=== PATIENT | male | born 1965 | race Hispanic/Latino ===

== ENCOUNTER 2024-01-27 01:14 | Inpatient (IN) | payer OTHER, SELFPAY ==
[2024-01-26 20:51] VITALS: BP 158/105
[2024-01-26 21:09] LABS: % Basophils 0.3 % (0-2); % Eosinophils 0.9 % (0-6); % Immature Granulocytes 0.4 % (0-0.5); % Lymphocytes 18.7 % (20.5-51.1); % Monocytes 4.8 % (1.7-9.3); % Neutrophils 74.9 % (42.2-75.2); Absolute Eosinophils 0.1 10^3/uL (0-0.7); Absolute Lymphocytes 1.5 10^3/uL (1.2-3.4); Absolute Monocytes 0.4 10^3/uL (0.1-0.6); Absolute Neutrophils 5.8 10^3/uL (1.4-6.5); Hematocrit 46.9 % (39.0-52.0); Mean Corp Hgb Conc. 34.1 g/dL (33.0-37.0); Mean Corpuscular Volume 87.8 fL (80.0-94.0); Mean Platelet Volume 12.6 fL (7.4-10.4); Nucleated Red Blood Cells % 0 % (-); Platelet Count 177 10^3/uL (130-400); Red Blood Cell Count 5.34 10^6/uL (4.70-6.10); Red Cell Dist. Width 13.2 % (11.5-14.5); White Blood Cell Count 7.8 10^3/uL (4.8-10.8)
[2024-01-26 21:37] LABS: ALT (SGPT) 36 U/L (0-50); AST (SGOT) 30 U/L (17-59); Albumin 4.1 g/dl (3.5-5.0); Alkaline Phosphatase 180 U/L (38-126); Blood Urea Nitrogen 18 mg/dl (9-20); Calcium 9.4 mg/dl (8.4-10.2); Carbon Dioxide 21 mmol/L (22-30); Chloride 103 mmol/L (98-107); Glucose 517 mg/dl (70-99); Potassium 4.9 mmol/L (3.5-5.1); Sodium 134 mmol/L (135-145); Total Bilirubin 1.4 mg/dl (0.2-1.3); Total Protein 7.1 g/dl (6.3-8.2); eGFR > 60.00
[2024-01-26 22:55] VITALS: BMI 32.4
[2024-01-26 22:58] VITALS: BP 152/98
[2024-01-26] MEDS: NSS 1000 IV ×2 (23:02→23:45)
--- NOTE | 2024-01-26 23:27 | ED.GENMED ---
History of Present Illness
General
Chief Complaint: Blood Sugar Problem
Source: patient
Exam Limitations: none
Time Seen by Provider: 01/26/24 22:56
Nursing documentation reviewed up to this point in time: agreed with
Travel History
Have you had any contact with someone who has COVID-19?: No
Do you have any symptoms of coronavirus? Fever > 100 degrees, chills, cough, shortness of breath, sore throat, loss of taste or smell, muscle aches, or headache?: No
History of Present Illness
History of Present Illness:
58 y/o M dutch speaking male
here with 20 pound weight loss in a few weeks, polydipsia, polyuria,
and then vomit x 1 yesterday
dry mouth and tongue feeling with cracked skin in mouth and lips
pt does not have a doctor, he has a clinic he has been to near his house but no family doctor
had previous surgery of his hip for arthrits and his A1C was 6.1 at the time
he has never been told he was diabetic
he does drink beers daily, usually around 1-4 beers
he previuosly was heavy drinker and was told he had cirrhosis
Past History
Past History
ED Past Medical History: Other (Cirrhosis alcoholic)
ED Past Surgical History: Orthopedic (Left total hip replacement)
Social History
Tobacco: Non-smoker
Alcohol: Daily (Former alcoholic)
Drug: None
Personal:
Living: with family
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
Review of Systems
Review of Systems
Allergies reviewed?: Yes
All Other Systems: Not applicable
Phy Exam
Physical Exam
Physical Exam:
GENERAL: Alert , in no apparent distress
EYE: pupils equal and reactive
NECK: Supple
ENT: very dry mouth, plaques in his roof of mouth and tongue; c/w thrush
CARDIAC: Regular rate and rhythm .
LUNGS: Clear breath sounds bilaterally, no acute respiratory distress, no wheezes/rales/rhonchi
ABDOMEN: Soft, without focal tenderness, no r/g, no cvat, normal bowel sounds
NEUROLOGICAL: Alert and oriented, no focal neuro deficits
SKIN: Warm and dry, skin intact.
MUSCULOSKELETAL: No edema, well perfused. neg keila's sign
PSYCH: Normal and appropriate interaction.
Course
Orders/Labs/Results
Orders:
Orders
01/26/24 20:59
Complete Blood Count/With Diff Urgent
Comprehensive Metabolic Panel Urgent
01/26/24 22:20
IV Insert/Care/Rem.- Treatment PRN
01/26/24 23:00
0.9% Sodium Chloride 1000 ml [Nss] 1,000 ml IV BOLUS
01/26/24 23:05
B-Hydroxybutyrate Urgent
Basic Metabolic Panel Q2H
Glycohemoglobin (HgbA1c) Urgent
01/26/24 23:18
0.9% Sodium Chloride 1000 ml [Nss] 1,000 ml IV BOLUS
01/26/24 23:44
Urinalysis Urgent
Date Specimen was Collected: 01/26/24
Time Specimen was Collected: 23:44
01/27/24 00:34
Basic Metabolic Panel Q2H
GGTP Routine
Comment: ADDED
01/27/24 00:35
Fluconazole [Diflucan] 150 mg PO NOW STA
01/27/24 00:59
Admit/Transfer Patient As Directed
Co-Sign Provider:
Level of Care: Inpatient admission
Assign to:: ICU
Physician / Group: heshamy
Diagnosis: New onset of DM presents as hyperglycemic crisis ( DKA vs HHC)
Reason for Hospitalization: New onset of DM presents as hyperglycemic crisis ( DKA vs HHC)
Expected length of stay greater than two midnights?: Yes
ELOS- Estimated Length of Stay in days: 3
I certify the patient meets the requirements for IP care: Yes
01/27/24 01:00
Code Status As Directed
Resuscitation Status: Full Code
Reg Insulin 100 Units/100 ml [Novolin R Insulin Infusion] 100 units in 100 ml IV ONCE
01/27/24 02:24
0.9% Sodium Chloride 1000 ml [Nss] 1,000 ml IV 160 mls/hr
Reg Insulin 100 Units/100 ml [Novolin R Insulin Infusion] 100 units in 100 ml IV PER PROTOCOL
Initial dose in units/hr, then titrate:: 6
01/27/24 02:24
Diabetes Education Consult Routine
Reason for Consult: Insulin Instruction
Monitor Instruction
Newly Diagnosed?: Yes
Diabetes Management by Nurse Practitioner Routine
Consulting Provider: Daya Palafox
Was provider already notified?: No
Reason for Consult: Insulin Management
Activity As Directed
Activity Level: With Assistance
Intake/ Output As Directed
Frequency: Per unit guidelines
Notify MD As Directed
Notify physician if: Nurse to contact provider when glucose reaches 250 to obtain orders for D5 0.45 NaCl
Pneumatic Compression Sleeves As Directed
Type: Knee high
Vital Signs As Directed
Frequency: Per unit guidelines
Weight As Directed
Frequency: Daily
DX Deep Vein Thrombosis Video Routine
01/27/24 03:46
Basic Metabolic Panel IN AM
Complete Blood Count/No Diff IN AM
Prothrombin Time IN AM
01/27/24 Breakfast
2000 calorie (17 carb) Diabetic
At Your Request: Limited Participation
Does patient need a safe tray?: No
Comment: dutch speaking
Abnormal Lab Results
01/26/24 01/26/24 01/26/24
20:59 23:05 23:44
MPV 12.6 H fL
(7.4-10.4)
Lymphocytes % 18.7 L %
(20.5-51.1)
Sodium 134 L mmol/L
(135-145)
Chloride
Carbon Dioxide 21 L mmol/L
(22-30)
Glucose 517 H* mg/dl 480 H* mg/dl
(70-99) (70-99)
Total Bilirubin 1.4 H mg/dl
(0.2-1.3)
Alkaline Phosphatase 180 H U/L
(38-126)
Urine Ketones 3+ A
(Negative)
Urine Glucose 3+ A
(Negative)
B-Hydroxybutyrate 4.17 H mmol/L
(0.02-0.27)
01/27/24
00:34
MPV
Lymphocytes %
Sodium
Chloride 108 H mmol/L
(98-107)
Carbon Dioxide 21 L mmol/L
(22-30)
Glucose 346 H mg/dl
(70-99)
Total Bilirubin
Alkaline Phosphatase
Urine Ketones
Urine Glucose
B-Hydroxybutyrate
01/26/24 20:59
01/27/24 00:34
Vital Signs
Initial and Last Documented VS:
Initial Vital Signs
Temp Pulse Resp BP Pulse Ox
98.3 F 88 18 158/105 94
01/26/24 20:51 01/26/24 20:51 01/26/24 20:51 01/26/24 20:51 01/26/24 20:51
Last Documented Vital Signs
Temp Pulse Resp BP Pulse Ox
98.8 F 61 20 159/91 97
01/27/24 02:26 01/27/24 03:45 01/27/24 03:45 01/27/24 03:09 01/27/24 03:49
MDM/Problems Addressed
Differential Diagnosis Includes:
DKA, HHNK, hyperglycemia
MDM/Problems Addressed:
58 y/o M with no reported history of Dm
here with feew weeks of weight loss, fatigue, thirst, polyuria
vomited x 1 ysterdsay
and now with mouth sores and dryness
bg 500
dry mouth with some plaques on roof of mouth and tongue
hr normal
abdomen benign
Ua 3+ ketones
bhb 4.17
ag 10
WILL START INSULIN DRIPP
*Critical Care Note
Total Time (30-74mins, 75-104mins- exclusive of procedures): Not Applicable
ED Attending Note
-
Portions of this chart may have been created with voice recognition software.� Occasional wrong word or��sound alike� substitutions may have occurred due to the inherent limitations of voice recognition software.
Discharge Plan
Departure
Patient Disposition: Admit
Date of Disposition: 01/27/24
Time of Disposition: 00:33
Presentation/result/management discussed w/ accepting MD/DO: Hospitalist
Patient with high blood pressure during this ER visit?: Yes
Condition: Fair
Covid-19: Not Applicable
Discharge Problem:
Acute hyperglycemia
Interventions
Interventions:
*Risk Screen - Suicide Last Done: 01/26/24 20:51
*General Assessment Last Done: 01/26/24 20:51
*Neglect/Abuse Screening Last Done: 01/26/24 20:51
ED- Fall Risk Assessment Last Done: 01/26/24 23:00
*ED COVID-19 Vaccine History Last Done: 01/26/24 22:56
*Nursing Disposition Last Done: 01/27/24 01:59
ED- Neurological Assessment Last Done: 01/26/24 23:27
Discharge Date and Time
Discharge Date/Time: 01/27/24 02:06
[2024-01-26 23:44] LABS: Blood Urea Nitrogen 18 mg/dl (9-20); Calcium 9.6 mg/dl (8.4-10.2); Carbon Dioxide 23 mmol/L (22-30); Chloride 103 mmol/L (98-107); Estimated Creatinine Clearance 103 ml/min; Glucose 480 mg/dl (70-99); Potassium 5.1 mmol/L (3.5-5.1); Sodium 136 mmol/L (135-145); eGFR > 60.00
[2024-01-26 23:48] LABS: B-Hydroxybutyrate 4.17 mmol/L (0.02-0.27)
[2024-01-27] VITALS (15 sets, daily range): BP systolic 130–168; BP diastolic 66–101; BMI 32.7
[2024-01-27 00:03] LABS: Urine Albumin Negative (Neg - Trace); Urine Bilirubin Negative (Negative); Urine Character Clear (Clear); Urine Color Yellow; Urine Glucose 3+ (Negative); Urine Ketone 3+ (Negative); Urine Leukocyte Negative (Negative); Urine Nitrite Negative (Negative); Urine Occult Blood Negative (Negative); Urine Specific Gravity 1.015 (<1.030); Urine Urobilinogen Negative (Neg - 1+)
--- NOTE | 2024-01-27 00:52 | HPS.HSE ---
Addendum entered and electronically signed by Nicolas Olsen MD 01/27/24 19:02:
A1C 14.4
Original Note:
Family Physician
-
Family Physician: NOT KNOW UNKNOWN - PT DOES
Chief Complaint
-
thirsty , dry mouth, wt loss
History of Present Illness
58 Romanian speaker M, No PCP, not on ant meds HX ETOH cirrhosis, no prior established HX DM
HX from with limited Monegasque reports 3-4 days ago he complnts of blurry vision, spontaneously resloved.
He denied polyuria but reports thirsty
Reports sore throat and sore mouth noted oral thrush on exam.
Admitted drinking 1- 3 beer per day for last 1 week.
No prior HX DM
Medical History
Past Medical History
Past Medical History: Reports Other (Cirrhosis alcoholic)
Past Surgical History: Reports None
Social History
Tobacco: Non-smoker
Alcohol: Other (Start drinking 1 -3 beer a day for 1 week )
Living: With Family
Family History
Family History: Not pertinent
Allergies / Home Medications
Allergies reflects when Allergies were last updated in [facility].
Home Medications with original date entered in [facility]
Allergy/Medication List:
Allergies
Allergy/AdvReac Type Severity Reaction Status Date / Time
No Known Allergies Allergy Verified 11/02/22 00:42
Home Medications
No Meds [No Current Medications] 01/26/24
If medication reconciliation has not been performed, why?: Medication List N/A
Review of Systems
-
Constitutional: Reports Weight Loss (20 lbs )
EENT: Reports No Symptoms
Respiratory: Reports No Symptoms
Cardiac: Reports No Symptoms
Abdomen/GI: Reports No Symptoms
: Reports No Symptoms
Musculoskeletal: Reports No Symptoms
Skin: Reports No Symptoms
Neurological: Reports No Symptoms
Endocrine: Reports Polyuria and Polydipsia
Hematologic/Lymphatic: Reports No Symptoms
Psych: Reports No Symptoms
Physical Exam
Vital Signs
Vital Signs
Temp Pulse Resp BP Pulse Ox
98.4 F 66 12 152/98 97
01/26/24 22:58 01/26/24 23:48 01/26/24 23:48 01/26/24 22:58 01/26/24 23:48
Physical Exam
General: Well Developed, Well Nourished, No Apparent Distress and Obese (class I)
HEENT: NormoCephalic and Other (oral candidiasis ); No Moist mucous membranes
Respiratory: Clear; No Wheezes
Cardiac: S1/S2 and Regular Rhythm
GI: Soft
Genito-urinary: Deferred by me
Musculoskeletal: No Edema
Skin: Dry
Neuro: Awake and Alert
Psych: Calm
Laboratory Results
-
01/26/24 20:59
Laboratory Results
Total Bilirubin 1.4 mg/dl (0.2-1.3) H 01/26/24 20:59
AST 30 U/L (17-59) 01/26/24 20:59
ALT 36 U/L (0-50) 01/26/24 20:59
Alkaline Phosphatase 180 U/L (38-126) H 01/26/24 20:59
Data Reviewed
-
Lab Data: Labs Reviewed by me
Impression/Plan
-
Reviewed VS:
Vital Signs
Temp Pulse Resp BP Pulse Ox
98.4 F 66 12 152/98 97
01/26/24 22:58 01/26/24 23:48 01/26/24 23:48 01/26/24 22:58 01/26/24 23:48
Data
Unremarkable CBC
Na 134 K 4.9 Cl 103 CO2 21 Cr 0.8 Albumin 4.1
NAG MA 10
BG 517 --> 480
Pending A1C
POS BHB 4.14
TB 1.4
Last hospitalist admission: 10/03/20 - 10/08/20 DCDx; Covid PNA
ASSESSMENT & PLAN
New onset of DM presents as hyperosmolar hyperglycemic crisis
POS BHP suspect ETOH Ketosis
NAG MA @10
- Agree with Insulin gtt per hyperglycemic crisis protocol
- IV NS @ 160/H
- Trend BMP per protocol
- DM RES HABILITATION ASSISTANT consult for insulin management
- DM Educator consult
Oral candidiasis due to DM
- s/p Fluconazole x 1
- Oral Nystatin S & S
Relapse ETOH use disorder for 1 week
Former ETOH and sober for 1 yrs
Low risk for ETOH WDS
- ETOH WD protocol
HX ETOH Cirrhosis
- Nl Albumin
- Nl platelets
- check INR to eval synthetic dysfunction
Clas I Obesity due to protein calorie excess
DVT Px: SCD
Full code
ICU
[2024-01-27 00:59] LABS: Blood Urea Nitrogen 17 mg/dl (9-20); Calcium 8.4 mg/dl (8.4-10.2); Carbon Dioxide 21 mmol/L (22-30); Chloride 108 mmol/L (98-107); Estimated Creatinine Clearance > 125 ml/min; Glucose 346 mg/dl (70-99); Potassium 4.1 mmol/L (3.5-5.1); Sodium 140 mmol/L (135-145); eGFR > 60.00
[2024-01-27] MEDS: NOVOLIN R INSULIN INFUSION 100 IV (01:24)
[2024-01-27] MEDS: DIFLUCAN 150 MG PO (02:02)
[2024-01-27 02:34] LABS: Glucose - Point of Care 246 mg/dl (70-99)
[2024-01-27] MEDS: D5/0.45%NSS with KCL 20 MEQ 1000 IV ×2 (03:09→08:20)
[2024-01-27 03:21] LABS: GGTP 37 U/L (15-73)
--- NOTE | 2024-01-27 03:53 | PTCARENOTE ---
Received pt from ED to ICU [id number]. Pt. walked without assist to bed from stretcher. AAOx3. Mostly belgian speaking- banjo repairer line used PRN. SB/SR, HR 50s-60s. BP 140s-150s/90s. + pulses, afebrile. On RA, lungs CTA. + bowel sounds. Voiding in
urinal. Skin c/d/i. R AC #18 and L AC #20. Insulin gtt per DKA protocol ongoing. [id number] @ 160ml/hr per order. Repeat labs sent. Pt. resting without complaint.
[2024-01-27 03:55] LABS: Hemoglobin 13.3 g/dL (13.0-18.0); Mean Corp Hgb Conc. 34.1 g/dL (33.0-37.0); Mean Corpuscular Volume 87.8 fL (80.0-94.0); Mean Platelet Volume 12.5 fL (7.4-10.4); Platelet Count 127 10^3/uL (130-400); Red Blood Cell Count 4.44 10^6/uL (4.70-6.10); Red Cell Dist. Width 13.1 % (11.5-14.5); White Blood Cell Count 5.5 10^3/uL (4.8-10.8)
[2024-01-27 03:55] LABS: Glucose - Point of Care 212 mg/dl (70-99)
[2024-01-27 04:17] LABS: APTT 28.3 Sec (23.4-35.0); INR 1.01; PT 13.1 Sec (11.4-14.6)
[2024-01-27 04:19] LABS: Blood Urea Nitrogen 15 mg/dl (9-20); Calcium 8.5 mg/dl (8.4-10.2); Carbon Dioxide 21 mmol/L (22-30); Chloride 110 mmol/L (98-107); Estimated Creatinine Clearance > 125 ml/min; Glucose 256 mg/dl (70-99); Potassium 3.7 mmol/L (3.5-5.1); Sodium 141 mmol/L (135-145); eGFR > 60.00
[2024-01-27 05:06] LABS: Glucose - Point of Care 204 mg/dl (70-99)
[2024-01-27 06:10] LABS: Glucose - Point of Care 194 mg/dl (70-99)
[2024-01-27 07:28] LABS: Glucose - Point of Care 226 mg/dl (70-99)
--- NOTE | 2024-01-27 07:41 | CON.INTV ---
Consultation
Consultation Request
Date/Time Consultation Requested: 01/27/2024-7 AM
Date/Time Consultation Performed: 01/27/2024-7 AM
Requesting Provider: Hospitalist
Performing Provider: Dr. Corral
Reason for Consultation: Hyperosmolar hyperglycemic crisis
Medical History
-
Chief Complaint: Elevated blood sugars
History of Present Illness:
58-year-old Afghan-speaking male alcoholic who presented with hyperosmolar hyperglycemic crisis-collator operator consulted for diabetes/insulin drip/alcohol withdrawal/critical care management 01/27/2024. 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 He complains of a sore throat but no shortness of breath, chest congestion, productive cough, abdominal pain, nausea, vomiting, diarrhea, leg swelling or weakness.
Past Medical History
Past Medical History: None (Alcoholism. Cirrhosis.)
Social History
Tobacco: Non-smoker
Alcohol: Daily
Drug: None
Living: With Family
Occupational Exposures: Unknown tuberculosis exposure
Environmental Exposures: Unknown asbestos exposure
Family History
Family History: Reviewed & Not Pertinent
Allergies / Home Medications
Allergies
Allergy/AdvReac Type Severity Reaction Status Date / Time
No Known Allergies Allergy Verified 11/02/22 00:42
Home Medications
Medication Instructions Recorded Confirmed Last Taken Type
No Meds [No Current Medications] 01/26/24 01/26/24 Unknown History
Review of Systems
-
Unable to Obtain full review of systems at this time due to: Other (Per HPI)
Vitals / Labs / Diagnostic Testing
Vital Signs
Temp Pulse Resp BP Pulse Ox
98.7 F 61 21 132/91 95
01/27/24 07:24 01/27/24 06:00 01/27/24 06:00 01/27/24 04:00 01/27/24 06:00
Lab Data
01/27/24 03:46
Laboratory Results
01/27/24
03:46
PT 13.1
INR 1.01
APTT 28.3
Diagnostic Testing:
Physical Exam
-
Exam:
Well-nourished and well-developed in no apparent distress
HEENT-atraumatic, normocephalic
Neck-supple, no JVD, no bruit
Heart-regular rate and rhythm-no murmurs, rubs or gallops
Chest-clear to auscultation, no wheezes, crackles
Back-no tenderness
Abdomen-soft, nontender, nondistended, no hepatosplenomegaly
Extremities-no cyanosis, clubbing, edema and good peripheral pulses
Integument-intact, no rashes, lesions or ecchymosis
Neurology-alert and oriented, nonfocal motor and sensory exam
Assessment
-
58-year-old Afghan-speaking male alcoholic who presented with hyperosmolar hyperglycemic crisis-collator operator consulted for diabetes/insulin drip/alcohol withdrawal/critical care management 01/27/2024.
Assessment
Hyperosmolar hyperglycemic crisis-New onset diabetes
Blood sugar 517, anion gap 10
Kzqgnreebajfemyq-pezr-orzzxdks 127
Ketosis-starvation and acute alcoholic
Oral candidiasis
Obesity-BMI 33
Conditions present prior to admission:
Hospitalization September 2020-viral pneumonia/COVID/transaminitis, hyperglycemia and hyponatremia
Alcoholism
Cirrhosis
Covid-09/2020
Plan
Patient admitted to medical intensive care unit for blood sugar and ketosis management
Supplemental oxygen
Aspiration precautions
Incentive spirometry
Monitor blood sugar
Insulin supplementation as needed
Intravenous fluids
Replace electrolytes
Monitor ketosis and anion gap-no anion gap on admission
A1c pending
Alcohol withdrawal treatment protocol
Follow MSAS
Thiamine and multivitamin
Ativan as needed
Check cultures
Nystatin for oral candidiasis
Monitor thrombocytopenia
Likely related to alcohol abuse
DVT prophylaxis
GI prophylaxis
Nutrition
Early mobilization
If able to be weaned off insulin drip then transfer out of ICU-call pulmonary if respiratory issues arise
Consider outpatient sleep disordered breathing workup-at risk with elevated BMI and thick neck circumference
Critical care statement: A total of 55 minutes of critical care time was provided for this patient today. This includes management of unstable vital signs, evaluation of the patient at bedside, reviewing the patient's pertinent medical records
including radiographs, microbiology, laboratory evaluations, and discussion with primary team-Dr. Landry, consultants, pharmacy, nutrition, physical therapy, case management, charge nurse, critical care nursing, and respiratory therapy.
Diagnostic data:
Chest x-ray 10/03/2020-diffuse bilateral pneumonia
Data Reviewed
-
EKG: Report reviewed by me
Radiology: Report reviewed by me
CT Scan: Report reviewed by me
Labs: Labs reviewed by me
Old Records: Reviewed
Critical Care Time (in minutes): 55
--- NOTE | 2024-01-27 08:07 | PN.DE.MGMTRT ---
Addendum entered and electronically signed by NAN Holly 01/27/24 15:13:
A1C 14.4%, pre-lunch glucose 200, required 2 units additional corrective insulin.
Will increase NovoLog AC to 7 units
Original Note:
Insulin Management
- -
01/27/2024: Diabetes Management Consult
58 year old male with hx of ETOH Cirrhosis and no prior established hx of DM, presented to ED with c/o blurry vision, increased thirsty, sore throat and sore mouth with oral thrush. Noted for glucose level of 571 and admitted for HHNS and started on
insulin drip. A1C pending.
Pt seen this morning with at bedside and son on phone. Son is Liberian speaking and able to provide detailed Medical hx.
According to the son, Pt has Hx of Arthritis S/P Left hip replacement 10/2023, ETOH use with recent relapse, however, no hx of DM and not taking any medications, has 2 cousins with T2DM, no other family member that he is aware of.
Current glucose range 194 to 246 requiring 2-8 units of insulin/hr. He is sitting up in bed, A/O x3, offers no complaints.
He has been transitioned off the gtt by Dr. Landry, ordered Lantus 15 units now and NovoLog 5 units AC.
Will start Lantus 15 units @ HS. change to low corrective with meals. Will add metformin 500 mg BID, 1 st dose with dinner.
Diabetes History
- -
Type of Diabetes: 2 requiring insulin
Pre-Admission Diabetes Regimen
01/26/24 01/26/24 01/27/24
20:59 23:05 00:34
Creatinine 0.8 0.9 0.7
01/27/24 01/27/24 01/27/24
02:24 03:46 03:46
Creatinine Cancelled 0.6 L Cancelled
Insulin Pump Settings
IP Diabetes Regimen
01/26/24 01/26/24 01/27/24
20:59 23:05 00:34
Glucose 517 H* 480 H* 346 H
POC Glucose
01/27/24 01/27/24 01/27/24
02:23 02:24 03:43
Glucose Cancelled
POC Glucose 246 H 212 H
01/27/24 01/27/24 01/27/24
03:46 03:46 04:54
Glucose 256 H Cancelled
POC Glucose 204 H
01/27/24 01/27/24
05:59 07:17
Glucose
POC Glucose 194 H 226 H
Patient Education
[2024-01-27] MEDS: KCL 160 MEQ IV (08:20)
[2024-01-27] MEDS: FOLVITE 1 MG PO (08:20)
[2024-01-27] MEDS: MYCOSTATIN ORAL SUSPENSION 5 ML PO ×4 (08:20→21:27)
[2024-01-27] MEDS: THIAMINE INJECTION 200 MG IV ×2 (08:21→21:27)
--- NOTE | 2024-01-27 08:30 | PTCARENOTE ---
Received @ change of shift. Mostly Mosotho speaking, translation sources utilized as needed. Awakens to verbal stim, ox3. C/O throat/mouth soreness, self provided oral hygiene and nystatin admin- see JAN. SB/SR. SpO2 96% on RA. Cont b/b. Voids
clear, yellow urine in urinal. Assisted x1 OOB to chair, gait steady. Polyuria/polydipsia improving. IVF and K+ rider infusing via #20 L AC and Insulin gtt infusing via #18 R AC. Blood sugar checks maintained q1h. BMP drawn and sent to lab. Pt.
instructed on how to report care concerns. Call santamaria in reach. @ bedside.
--- NOTE | 2024-01-27 08:36 | W.PN.HOSP.TC ---
Today's Communication/Plan
-
see plan
Assessment / Plan
Assessment / Plan
Gen: NAD, AAOx3.
Eyes: EOMI, PERRLA, no scleral icterus.
ENMT: +oral thrush
Neck: supple.
CV: RRR, +S1/S2, no m/r/g.
Resp: CTAB, no rales, wheezes, or rhonchi.
Abd: +BS, soft, NT, ND
Skin: No rashes.
Neuro: CN 2-12 intact, non-focal.
Psych: Normal mood and affect.
Acute alcoholic/starvation ketosis:
-likely new onset DM2
-h/o alcoholic cirrhosis
-no AG on admission
-stop insulin gtt, start basal/bolus insulin
-a1c pending
-cont IVFs
-cont MSAS protocol (thiamine/folate/PRN ativan)
Oral candidiasis:
-cont Nystatis s/s
Thrombocytopenia, likely due to EtOH abuse
Obesity due to excess calories
Transfer to [place]
FULL/SCDs
Total time spent on today's encounter was 50 minutes which included time spent in counseling the patient/family regarding diagnosis and treatment plan as listed above, goals of care, and symptom management. Case was discussed with nursing staff,
specialists, and care coordinators/case management. All labs and imaging personally reviewed by me. Remainder the time spent in detailed review of previous records, lab data, imaging, and other medical provider documentation.
Anticipated Discharge: 24 - 48 hours
Subjective/Interval History
-
Date of Service: January 27, 2024
Objective Data
-
Labs:
Laboratory Results
01/26/24 01/26/24 01/27/24
20:59 23:05 00:34
WBC 7.8
Hgb 16.0
Hct 46.9
Plt Count 177
PT
INR
APTT
Sodium 134 L 136 140
Potassium 4.9 5.1 4.1
Chloride 103 103 108 H
Carbon Dioxide 21 L 23 21 L
BUN 18 18 17
Creatinine 0.8 0.9 0.7
Glucose 517 H* 480 H* 346 H
Calcium 9.4 9.6 8.4
Total Bilirubin 1.4 H
AST 30
ALT 36
Alkaline Phosphatase 180 H
01/27/24 01/27/24 01/27/24
02:24 03:46 03:46
WBC 5.5
Hgb 13.3
Hct 39.0
Plt Count 127 L D
PT 13.1
INR 1.01
APTT 28.3
Sodium Cancelled 141 Cancelled
Potassium Cancelled 3.7
Chloride Cancelled
Carbon Dioxide Cancelled
BUN Cancelled
Creatinine Cancelled
Glucose Cancelled
Calcium Cancelled
Total Bilirubin
AST
ALT
Alkaline Phosphatase
01/27/24 01/27/24 01/27/24
03:46 03:46 03:46
WBC
Hgb
Hct
Plt Count
PT
INR
APTT
Sodium
Potassium Cancelled
Chloride 110 H Cancelled
Carbon Dioxide 21 L Cancelled
BUN 15
Creatinine
Glucose
Calcium
Total Bilirubin
AST
ALT
Alkaline Phosphatase
01/27/24 01/27/24 01/27/24
03:46 03:46 03:46
WBC
Hgb
Hct
Plt Count
PT
INR
APTT
Sodium
Potassium
Chloride
Carbon Dioxide
BUN Cancelled
Creatinine 0.6 L Cancelled
Glucose 256 H Cancelled
Calcium 8.5
Total Bilirubin
AST
ALT
Alkaline Phosphatase
01/27/24 01/27/24 01/27/24
03:46 04:00 08:00
WBC
Hgb
Hct
Plt Count
PT
INR
APTT
Sodium
Potassium Cancelled Cancelled
Chloride
Carbon Dioxide
BUN
Creatinine
Glucose
Calcium Cancelled
Total Bilirubin
AST
ALT
Alkaline Phosphatase
01/27/24 01/27/24 01/27/24
08:34 10:00 12:00
WBC
Hgb
Hct
Plt Count
PT
INR
APTT
Sodium Pending Pending
Potassium Pending Cancelled Cancelled
Chloride Pending
Carbon Dioxide Pending
BUN Pending
Creatinine Pending
Glucose Pending
Calcium Pending
Total Bilirubin
AST
ALT
Alkaline Phosphatase
01/27/24 01/27/24 01/27/24
12:00 14:00 16:00
WBC
Hgb
Hct
Plt Count
PT
INR
APTT
Sodium Pending
Potassium Pending Cancelled Cancelled
Chloride Pending
Carbon Dioxide Pending
BUN Pending
Creatinine Pending
Glucose Pending
Calcium Pending
Total Bilirubin
AST
ALT
Alkaline Phosphatase
01/27/24 01/27/24 01/27/24
16:00 18:00 20:00
WBC
Hgb
Hct
Plt Count
PT
INR
APTT
Sodium Pending
Potassium Pending Cancelled Pending
Chloride Pending Pending
Carbon Dioxide Pending Pending
BUN Pending Pending
Creatinine Pending Pending
Glucose Pending Pending
Calcium Pending Pending
Total Bilirubin
AST
ALT
Alkaline Phosphatase
Vital Signs:
Vital Signs
Temp Pulse Resp BP Pulse Ox
98.7 F 61 21 132/91 95
01/27/24 07:24 01/27/24 06:00 01/27/24 06:00 01/27/24 04:00 01/27/24 06:00
I&O
01/26/24 01/27/24 01/28/24
06:59 06:59 06:59
Intake Total 651 / 814 163 / 163
Output Total 400 / 400
Balance 251 / 414 163 / 163
[2024-01-27 08:38] LABS: Glucose - Point of Care 193 mg/dl (70-99)
[2024-01-27 09:07] LABS: Glucose - Point of Care 184 mg/dl (70-99)
[2024-01-27 09:12] LABS: Blood Urea Nitrogen 11 mg/dl (9-20); Calcium 8.2 mg/dl (8.4-10.2); Carbon Dioxide 25 mmol/L (22-30); Chloride 111 mmol/L (98-107); Estimated Creatinine Clearance > 125 ml/min; Glucose 208 mg/dl (70-99); Potassium 3.6 mmol/L (3.5-5.1); Sodium 139 mmol/L (135-145); eGFR > 60.00
[2024-01-27] MEDS: LANTUS 0.149999999999999994 UNITS SC ×2 (09:46→21:28)
[2024-01-27 10:05] LABS: Glycohemoglobin (HgbA1c) 14.4 % (4.0-5.6)
--- NOTE | 2024-01-27 11:37 | CM ---
CM following re: discharge planning.
Reviewed pt's chart, met with pt and pt's spouse at bedside and spoke to pt's son over the phone.
Pt is a 58 year old Nepalese speaking male, admitted with primary dx of Acute alcoholic/starvation ketosis.
Per spouse and pt's son, pt lives with spouse in an apartment, has 3 supportive children. Pt's son described the pt as independent in all areas [employer], drives, works. No DME, VN or SNF history.
Pt declined having alcohol related problems, had alcoholic beverages in the past 8 days. Pt declined to meet with [facility].
PCP: Does not remember. Pt's son stated that information regarding pt's PCP at pt's home.
Pharmacy: [facility]
D/C plan: home with anticipated no needs. Spouse to transport at discharge.
CM will follow with discharge plan updates as hospitalization progresses
[2024-01-27 11:43] LABS: Glucose - Point of Care 200 mg/dl (70-99)
--- NOTE | 2024-01-27 11:46 | PTCARENOTE ---
Insulin gtt and IVF d/c'd per orders. Assisted pt. with ordering diet compliant food, awaiting tray. Blood glucose checks AC&HS initiated. Pt. and updated on plan of care. Pt. remains OOB to chair w call santamaria in reach.
[2024-01-27] MEDS: NOVOLOG FLEXPEN 5 UNITS SC (12:26)
[2024-01-27] MEDS: NOVOLOG FLEXPEN-LOW RESISTANCE 2 UNITS SC ×2 (12:27→18:40)
--- NOTE | 2024-01-27 15:30 | PTCARENOTE ---
Report given to 4W RN and pt. transported via wheelchair to rm [id number], bed 2. No further needs from this RN.
[2024-01-27 16:17] LABS: Glucose - Point of Care 231 mg/dl (70-99)
[2024-01-27] MEDS: GLUCOPHAGE 500 MG PO (18:35)
[2024-01-27] MEDS: NOVOLOG FLEXPEN 7 UNITS SC (18:39)
[2024-01-27 21:20] LABS: Glucose - Point of Care 307 mg/dl (70-99)
[2024-01-28 06:00] VITALS: BMI 32.6
[2024-01-28 07:38] VITALS: BP 131/86
[2024-01-28 07:48] LABS: Glucose - Point of Care 177 mg/dl (70-99)
[2024-01-28 08:30] LABS: % Basophils 0.4 % (0-2); % Eosinophils 1.8 % (0-6); % Immature Granulocytes 0.6 % (0-0.5); % Lymphocytes 31.1 % (20.5-51.1); % Monocytes 5.9 % (1.7-9.3); % Neutrophils 60.2 % (42.2-75.2); Absolute Eosinophils 0.1 10^3/uL (0-0.7); Absolute Lymphocytes 1.5 10^3/uL (1.2-3.4); Absolute Monocytes 0.3 10^3/uL (0.1-0.6); Absolute Neutrophils 2.9 10^3/uL (1.4-6.5); Hematocrit 41.7 % (39.0-52.0); Hemoglobin 14.5 g/dL (13.0-18.0); Mean Corp Hgb Conc. 34.8 g/dL (33.0-37.0); Mean Corpuscular Hgb 30.3 pg (27.0-31.0); Mean Corpuscular Volume 87.2 fL (80.0-94.0); Mean Platelet Volume 12.6 fL (7.4-10.4); Nucleated Red Blood Cells % 0 % (-); Platelet Count 119 10^3/uL (130-400); Red Blood Cell Count 4.78 10^6/uL (4.70-6.10); White Blood Cell Count 4.9 10^3/uL (4.8-10.8)
[2024-01-28 08:38] LABS: Blood Urea Nitrogen 13 mg/dl (9-20); Calcium 8.6 mg/dl (8.4-10.2); Carbon Dioxide 24 mmol/L (22-30); Chloride 107 mmol/L (98-107); Estimated Creatinine Clearance > 125 ml/min; Glucose 189 mg/dl (70-99); Potassium 3.8 mmol/L (3.5-5.1); Sodium 135 mmol/L (135-145); eGFR > 60.00
[2024-01-28] MEDS: NOVOLOG FLEXPEN 7 UNITS SC (09:38)
[2024-01-28] MEDS: NOVOLOG FLEXPEN-LOW RESISTANCE 1 UNITS SC ×2 (09:39→18:38)
[2024-01-28] MEDS: FOLVITE 1 MG PO (09:40)
[2024-01-28] MEDS: MYCOSTATIN ORAL SUSPENSION 5 ML PO ×4 (09:40→21:21)
[2024-01-28] MEDS: GLUCOPHAGE 500 MG PO ×2 (09:46→18:43)
[2024-01-28] MEDS: THIAMINE INJECTION 200 MG IV ×2 (09:46→21:20)
[2024-01-28] MEDS: FLUSH (NSS) 2 FLUSH IV (09:47)
--- NOTE | 2024-01-28 09:52 | PTCARENOTE ---
translator and interpreter #[id number] utilized to assist in communicating with patient to provide teaching on plan of care and medication, including insulin injection technique. Patient offered opportunity to ask questions and/or express concerns during phone
call with translator and interpreter. None were verbalized to the translator and interpreter at this time.
--- NOTE | 2024-01-28 11:14 | W.PN.HOSP.TC ---
Today's Communication/Plan
-
Monitor vital signs see plan
Continue with insulin, needs insulin teaching
Son updated over the phone
Assessment / Plan
Assessment / Plan
Gen: NAD, AAOx3.
Eyes: EOMI, PERRLA, no scleral icterus.
ENMT: +oral thrush
Neck: supple.
CV: RRR, +S1/S2, no m/r/g.
Resp: CTAB, no rales, wheezes
Abd: +BS, soft, NT, ND
Skin: No rashes.
Neuro: CN 2-12 intact, non-focal.
Psych: Normal mood and affect.
Acute alcoholic/starvation ketosis:
-new onset DM2
-h/o alcoholic cirrhosis
-no AG on admission
-Status post insulin gtt, now on basal/bolus insulin. Will need insulin on discharge.
-a1c 14.4
-cont IVFs
-cont MSAS protocol (thiamine/folate/PRN ativan)
Oral candidiasis:
-cont Nystatis s/s
Thrombocytopenia, likely due to EtOH abuse
Obesity due to excess calories
History of arthritis status post left hip replacement 10/2023
FULL/lovenox
Anticipated Discharge: 24 - 48 hours
Subjective/Interval History
-
Date of Service: January 28, 2024
Denies abdominal pain
Objective Data
-
Labs:
Laboratory Results
01/28/24
08:08
WBC 4.9
Hgb 14.5
Hct 41.7
Plt Count 119 L
Sodium 135
Potassium 3.8
Chloride 107
Carbon Dioxide 24
BUN 13
Creatinine 0.5 L
Glucose 189 H
Calcium 8.6
Vital Signs:
Vital Signs
Temp Pulse Resp BP Pulse Ox
97.6 F 64 22 131/86 98
01/28/24 07:38 01/28/24 07:38 01/28/24 07:38 01/28/24 07:38 01/28/24 07:38
I&O
01/27/24 01/28/24 01/29/24
06:59 06:59 06:59
Intake Total 651 / 814 1289 / 1289
Output Total 400 / 400 300 / 300
Balance 251 / 414 989 / 989
--- NOTE | 2024-01-28 11:30 | PN.DE.MGMTRT ---
Insulin Management
- -
01/28/2024: Diabetes Management Consult
58 year old male with hx of ETOH Cirrhosis and no prior established hx of DM, presented to ED with c/o blurry vision, increased thirsty, sore throat and sore mouth with oral thrush. Noted for glucose level of 571 and admitted for HHNS and started on
insulin drip. Transitioned from IV insulin to SQ yesterday. A1C14.4%, cr .5, eGFR >60. AC novolog was given 7 units AC with corrective insulin with dinner, HS glucose 307. Will increase AC novolog to 10 units. HS lantus dose 15 units given @
hs last night, fasting glucose this AM 177, lantus dose increased to 17 units.
Patient is cuban speaking he preferred to call son for interpretation. He is alert and oriented and able to participate in conversation for diabetes care. Provided and instructed patient on use of Contour Next glucose monitor with good return
demonstration, glucose 376.
Provided insulin pen instructions, unfortunately in amharic, but there are comprehensive pictures. Reviewed through son with patient steps to prepare and inject novolog AC in abdomen and Lantus @ hs in the abdomen.
Patient able to return demonstrate steps for monitor and insulin administration.
Diabetes History
- -
Type of Diabetes: 2 requiring insulin
Pre-Admission Diabetes Regimen
01/27/24 01/27/24 01/27/24
12:00 16:00 20:00
Creatinine Cancelled Cancelled Cancelled
01/28/24
08:08
Creatinine 0.5 L
Lab Results
Hemoglobin A1c 14.4 % (4.0-5.6) H 01/26/24 23:05
Insulin Pump Settings
IP Diabetes Regimen
01/27/24 01/27/24 01/27/24
11:32 12:00 16:00
Glucose Cancelled Cancelled
POC Glucose 200 H
01/27/24 01/27/24 01/27/24
16:15 20:00 21:19
Glucose Cancelled
POC Glucose 231 H 307 H
01/28/24 01/28/24
07:46 08:08
Glucose 189 H
POC Glucose 177 H
Meal type: Lunch
Amount consumed: 100%
Patient Education
[2024-01-28 12:14] LABS: Glucose - Point of Care 299 mg/dl (70-99)
[2024-01-28] MEDS: NOVOLOG FLEXPEN 10 UNITS SC ×2 (12:30→18:38)
--- NOTE | 2024-01-28 12:30 | CM ---
Patient seen with , reports no new concerns. CM will continue to follow for discharge planning needs.
Plan; home no needs.
[2024-01-28] MEDS: NOVOLOG FLEXPEN-LOW RESISTANCE 3 UNITS SC (12:31)
--- NOTE | 2024-01-28 12:39 | PTCARENOTE ---
Patient and instructed on lunch time insulin administration via demonstration and teach back method. Patient self-administered with good technique.
[2024-01-28 15:18] VITALS: BP 139/93
[2024-01-28 15:50] LABS: Glucose - Point of Care 176 mg/dl (70-99)
[2024-01-28] MEDS: LOVENOX 40 MG SC (18:45)
[2024-01-28 21:15] LABS: Glucose - Point of Care 167 mg/dl (70-99)
[2024-01-28] MEDS: LANTUS 0.170000000000000012 UNITS SC (21:20)
[2024-01-28 23:17] VITALS: BP 129/77
[2024-01-29 05:53] VITALS: BMI 32.6
[2024-01-29 07:30] VITALS: BP 134/92
[2024-01-29 07:47] LABS: Glucose - Point of Care 212 mg/dl (70-99)
[2024-01-29 07:58] LABS: % Basophils 0.5 % (0-2); % Eosinophils 2.1 % (0-6); % Immature Granulocytes 0.5 % (0-0.5); % Lymphocytes 35.4 % (20.5-51.1); % Monocytes 7.7 % (1.7-9.3); % Neutrophils 53.8 % (42.2-75.2); Absolute Eosinophils 0.1 10^3/uL (0-0.7); Absolute Lymphocytes 1.5 10^3/uL (1.2-3.4); Absolute Monocytes 0.3 10^3/uL (0.1-0.6); Absolute Neutrophils 2.3 10^3/uL (1.4-6.5); Hematocrit 40.6 % (39.0-52.0); Hemoglobin 14.5 g/dL (13.0-18.0); Mean Corp Hgb Conc. 35.7 g/dL (33.0-37.0); Mean Corpuscular Hgb 30.7 pg (27.0-31.0); Mean Corpuscular Volume 85.8 fL (80.0-94.0); Mean Platelet Volume 12.7 fL (7.4-10.4); Nucleated Red Blood Cells % 0 % (-); Platelet Count 113 10^3/uL (130-400); Red Blood Cell Count 4.73 10^6/uL (4.70-6.10); Red Cell Dist. Width 12.8 % (11.5-14.5); White Blood Cell Count 4.3 10^3/uL (4.8-10.8)
[2024-01-29 08:24] LABS: Blood Urea Nitrogen 14 mg/dl (9-20); Calcium 8.8 mg/dl (8.4-10.2); Carbon Dioxide 23 mmol/L (22-30); Chloride 103 mmol/L (98-107); Estimated Creatinine Clearance > 125 ml/min; Glucose 218 mg/dl (70-99); Potassium 3.8 mmol/L (3.5-5.1); Sodium 134 mmol/L (135-145); eGFR > 60.00
[2024-01-29] MEDS: NOVOLOG FLEXPEN-LOW RESISTANCE 2 UNITS SC ×2 (08:50→13:45)
[2024-01-29] MEDS: NOVOLOG FLEXPEN 10 UNITS SC (08:51)
[2024-01-29] MEDS: GLUCOPHAGE 500 MG PO ×2 (09:13→17:28)
[2024-01-29] MEDS: THIAMINE INJECTION 200 MG IV (09:13)
[2024-01-29] MEDS: FOLVITE 1 MG PO (09:13)
[2024-01-29] MEDS: MYCOSTATIN ORAL SUSPENSION 5 ML PO ×3 (09:13→17:28)
--- NOTE | 2024-01-29 09:18 | PN.DE.MGMTRT ---
Insulin Management
- -
01/29/2024: Diabetes Management Consult
58 year old male with hx of ETOH Cirrhosis and no prior established hx of DM, presented to ED with c/o blurry vision, increased thirsty, sore throat and sore mouth with oral thrush. Noted for glucose level of 571 and admitted for HHNS and started on
insulin drip. A1C 14.4%, cr .5, eGFR >60.
Pt is German speaking, preferred to call son for interpretation. He is awake, A/O x3, able to participate in conversation for diabetes care.
Reviewed and reinforced instructions for monitor use at home through son on phone. Provided pt with a pamphlet and sheet of instructions for insulin pen in German with comprehensive pictures .
Glucose remains elevated, premeal 176 to 212, requiring 1-3 units additional corrective insulin.
Lantus dose was increased to 17 units, HS glucose 167, FBG 218 this AM.
Will increase AC NovoLog to 12 units and Lantus to 30 units.
Diabetes History
- -
Type of Diabetes: 2 requiring insulin
Pre-Admission Diabetes Regimen
01/29/24
07:31
Creatinine 0.6 L
Lab Results
Hemoglobin A1c 14.4 % (4.0-5.6) H 01/26/24 23:05
Insulin Pump Settings
IP Diabetes Regimen
01/28/24 01/28/24 01/28/24
12:11 15:49 21:13
Glucose
POC Glucose 299 H 176 H 167 H
01/29/24 01/29/24
07:31 07:46
Glucose 218 H
POC Glucose 212 H
Meal type: Dinner
Meal type: Lunch
Amount consumed: 100%
Amount consumed: 100%
Patient Education
--- NOTE | 2024-01-29 10:27 | W.PN.HOSP.TC ---
Addendum entered and electronically signed by Hermelindo Carr MD 01/29/24 11:28:
Time of discharge 37 minutes
Original Note:
Today's Communication/Plan
-
Monitor vital signs
see plan
Possible discharge today
cw insulin
Assessment / Plan
Assessment / Plan
Gen: NAD, AAOx3.
Eyes: EOMI, PERRLA, no scleral icterus.
ENMT: +oral thrush
Neck: supple.
CV: RRR, +S1/S2, no m/r/g.
Resp: CTAB, no rales, wheezes
Abd: +BS, soft, NT, ND
Skin: No rashes.
Neuro: CN 2-12 intact, non-focal.
Psych: Normal mood and affect.
Acute alcoholic/starvation ketosis:
-new onset DM2
-h/o alcoholic cirrhosis
-no AG on admission
-Status post insulin gtt, now on basal/bolus insulin. Will need insulin on discharge. Patient is currently on Lantus and aspart. Confirmed with patient and his son that he is comfortable taking insulin. He is instructed by nurses and diabetes
nurse practitioner regarding insulin. Son is aware of having outpatient appointment with his primary care provider for further diabetes management.
cw metformin
-a1c 14.4
-cont MSAS protocol (thiamine/folate/PRN ativan)
No signs of alcohol withdrawal
Oral candidiasis:
-cont Nystatin s/s
Thrombocytopenia, likely due to EtOH abuse
Obesity due to excess calories
History of arthritis status post left hip replacement 10/2023
FULL/lovenox
Anticipated Discharge: Today
Subjective/Interval History
-
Date of Service: January 29, 2024
denies pain
Objective Data
-
Labs:
Laboratory Results
01/29/24
07:31
WBC 4.3 L
Hgb 14.5
Hct 40.6
Plt Count 113 L
Sodium 134 L
Potassium 3.8
Chloride 103
Carbon Dioxide 23
BUN 14
Creatinine 0.6 L
Glucose 218 H
Calcium 8.8
Vital Signs:
Vital Signs
Temp Pulse Resp BP Pulse Ox
97.6 F 78 22 134/92 98
01/29/24 07:30 01/29/24 07:30 01/29/24 07:30 01/29/24 07:30 01/29/24 07:30
I&O
01/28/24 01/29/24 01/30/24
06:59 06:59 06:59
Intake Total 1289 / 1289 480 / 480
Output Total 300 / 300
Balance 989 / 989 480 / 480
--- NOTE | 2024-01-29 11:27 | W.DCSUMMARY ---
Discharge Summary
Discharge Data
Date of Admission: 01/27/24
Date of Discharge: 01/29/24
-
Pending Results: No
Hospital Course
58-year-old male with history of alcohol use with abuse came to the hospital with acute alcoholic/starvation ketoacidosis. Patient was initially started on insulin drip which was later transitioned to subcutaneous insulin. His heme hemoglobin A1c
was checked which came out to be 14.4 consistent with new onset diabetes mellitus. Patient was seen by diabetes nurse practitioner throughout hospitalization and his insulin was titrated. He was also instructed on diabetes management including
teaching for insulin administration. Patient was also put on alcohol withdrawal protocol. On this hospitalization patient also had oral candidiasis which was treated with nystatin. Once patient symptoms continue to improve he was then discharged
home with instructions to follow-up with all his physicians outpatient.
Discharge Plan
-
Patient Disposition: Home (Routine Discharge)
Discharge Diagnosis/Procedures: Acute alcoholic/starvation keto acidosis
New onset diabetes mellitus
Oral candidiasis
Thrombocytopenia
Diet: Diabetic, Carb Controlled
Activity: As tolerated
Driving Restrictions: As prior to admission
Bathing Restrictions: None
Blood Work: CBC next week with primary care provider
Referrals:
UNKNOWN - PT DOES,NOT KNOW [Family Provider] - in less than 1 week
Prescriptions:
New
metformin 500 mg Tablet
500 mg PO BID@0800,1700 Qty: 60 0RF
(DME) Contour Next Test Strips Strip
Qty: 200 0RF
Rx Instructions:
test before each meal and HS As Directed E11.65
(DME) pen needle, diabetic [BD Ultra-Fine Stephanie Pen Needle] 32 gauge x 5/32' Needle
Qty: 200 0RF
Rx Instructions:
E11.65 As Directed
(DME) lancets [Color Lancets] 21 gauge Misc
Qty: 200 0RF
Rx Instructions:
Test before each meal and HS As Directed E11.65
folic acid 1 mg Tablet
1 mg PO DAILY Qty: 30 0RF
nystatin 100,000 unit/mL Suspension
5 ml PO QID 14 Days Qty: 280 0RF
thiamine HCl (vitamin B1) 100 mg Tablet
100 mg PO BID Qty: 60 0RF
insulin aspart U-100 [Novolog FlexPen U-100 Insulin] 100 unit/mL (3 mL) Insulin Pen
12 unit SC AC Qty: 5 0RF
insulin glargine [Lantus Solostar U-100 Insulin] 100 unit/mL (3 mL) Insulin Pen
20 unit SC HS Qty: 5 0RF
Discharge Orders:
Discharge Patient (As Directed); Ordered 01/29/24
Ordered By: Hermelindo Carr
[2024-01-29 12:13] LABS: Glucose - Point of Care 203 mg/dl (70-99)
[2024-01-29] MEDS: NOVOLOG FLEXPEN 12 UNITS SC ×2 (13:46→17:54)
[2024-01-29 15:00] VITALS: BP 130/76
--- NOTE | 2024-01-29 15:37 | CM ---
Patient seen bedside, plan for discharge today. CM spoke with patients nurse, son will provide transportation home around 5:00 p.m. CM will continue to follow for discharge planning needs.
Plan; home with family, no needs.
[2024-01-29 17:03] LABS: Glucose - Point of Care 182 mg/dl (70-99)
[2024-01-29] MEDS: LOVENOX SC (17:28)
[2024-01-29] MEDS: FLUZONE QUAD 2023-2024 SYRINGE 0.5 ML IM (17:35)
[2024-01-29] MEDS: NOVOLOG FLEXPEN-LOW RESISTANCE 1 UNITS SC (17:53)
== END 2024-01-29 18:26 | disposition home or self-care (01) | DRG 638 ==
LOC: 4 WEST ACU 01:14
PROVIDERS: Emergency Medicine; Nurse Practitioner Family; Student in an Organized Health Care Education/Training Program; ADMITTING PHYSICIAN Internal Medicine; ATTENDING PHYSICIAN Internal Medicine; EMERGENCY PHYSICIAN Emergency Medicine; OTHER PHYSICIAN Internal Medicine Critical Care Medicine
DX: E11.00 Type 2 diabetes mellitus with hyperosmolarity without nonketotic hyperglycemic-hyperosmolar coma (NKHHC) (principal); B37.0 Candidal stomatitis; E87.29 Other acidosis; E87.20 Acidosis, unspecified; E66.9 Obesity, unspecified; D69.6 Thrombocytopenia, unspecified; Z68.32 Body mass index [BMI] 32.0-32.9, adult
CPT/HCPCS: 71045; 80048; 80053; 81003; 82010; 82962; 82977; 83036; 85025; 85027; 85610; 85730; 90686; 96360; 96361; 99285; G0008

== ENCOUNTER 2024-04-03 18:40 | Emergency (ER) | payer OTHER, SELFPAY ==
[2024-04-03 18:42] VITALS: BP 145/86
[2024-04-03 19:07] VITALS: BMI 32.4
[2024-04-03 19:10] LABS: Glucose - Point of Care 104 mg/dl (70-99)
--- NOTE | 2024-04-03 19:10 | ED.GENMED ---
History of Present Illness
General
Chief Complaint: Skin Surface Trauma
Source: patient, family and previous hospital records
Exam Limitations: none
Time Seen by Provider: 04/03/24 18:57
Travel History
Have you had any contact with someone who has COVID-19?: No
Do you have any symptoms of coronavirus? Fever > 100 degrees, chills, cough, shortness of breath, sore throat, loss of taste or smell, muscle aches, or headache?: No
History of Present Illness
History of Present Illness:
58-year-old male admitted recently with DKA HH NK, started on insulin has followed up with primary care
Told that if he has any bleeding or wounds to follow-up, today had spontaneous bleeding from what seems like a varicosity of his left anterior desai, while taking a shower held pressure bleeding is stopped has had no fever no other bleeding, no
redness at the site
Past History
Past History
ED Past Medical History: IDDM and Other (Cirrhosis alcoholic)
ED Past Surgical History: Orthopedic (Left total hip replacement)
Social History
Tobacco: Non-smoker
Alcohol: Daily (Former alcoholic)
Drug: None
Personal:
Living: with family
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
Review of Systems
Review of Systems
All Other Systems: Not applicable
Constitutional: Denies fever or fatigue
Cardiac: Reports no symptoms
ABD/GI: Reports no symptoms; Denies bloody stools
: Reports no symptoms; Denies bleeding
Skin: Reports other (Bleeding from a varicose vein)
Phy Exam
Physical Exam
Physical Exam:
Physical Exam
General: no apparent distress, not acutely ill
Neck: No jaundice
Heart: s1/s2 regular rate and rhythm, no murmur. equal radial pulses.
Lungs: no acute respiratory distress. clear bilaterally
Neuro: alert and oriented. no focal neurological deficits
Skin: no rash
Psychiatric: well kept. interactive and cooperative
Extremities: Left anterior desai no active bleeding small varicosity no cellulitic changes
Course
Vital Signs
Initial and Last Documented VS:
Initial Vital Signs
Temp Pulse Resp BP Pulse Ox
98.0 F 63 18 145/86 96
04/03/24 18:42 04/03/24 18:42 04/03/24 18:42 04/03/24 18:42 04/03/24 18:42
Last Documented Vital Signs
Temp Pulse Resp BP Pulse Ox
98.0 F 63 18 145/86 96
04/03/24 18:42 04/03/24 18:42 04/03/24 18:42 04/03/24 18:42 04/03/24 18:42
MDM/Problems Addressed
Differential Diagnosis Includes:
Varicose vein cellulitis call trauma
MDM/Problems Addressed:
Bleeding which is resolved
Chronic conditions affecting care:
Alcoholism diabetes
Acute Exacerbation and/or Progression of Chronic Illness:
Alcoholism diabetes
*Pulse Oximetry
Patient hypoxic: no
*Critical Care Note
Total Time (30-74mins, 75-104mins- exclusive of procedures): Not Applicable
Update Note
Update Note:
Update patient's bleeding well-controlled is nontoxic will check Accu-Chek provide wound care topical antibiotics close follow-up with PCP or ER for worsening symptoms reviewed with son
ED Attending Note
-
Portions of this chart may have been created with voice recognition software.� Occasional wrong word or��sound alike� substitutions may have occurred due to the inherent limitations of voice recognition software.
Discharge Plan
Departure
Prescriptions:
No Action
metformin 500 mg Tablet
500 mg PO BID@0800,1700 Qty: 60 0RF
(DME) Contour Next Test Strips Strip
Qty: 200 0RF
Rx Instructions:
test before each meal and HS As Directed E11.65
(DME) pen needle, diabetic [BD Ultra-Fine Stephanie Pen Needle] 32 gauge x 5/32' Needle
Qty: 200 0RF
Rx Instructions:
E11.65 As Directed
(DME) lancets [Color Lancets] 21 gauge Misc
Qty: 200 0RF
Rx Instructions:
Test before each meal and HS As Directed E11.65
folic acid 1 mg Tablet
1 mg PO DAILY Qty: 30 0RF
nystatin 100,000 unit/mL Suspension
5 ml PO QID 14 Days Qty: 280 0RF
thiamine HCl (vitamin B1) 100 mg Tablet
100 mg PO BID Qty: 60 0RF
insulin aspart U-100 [Novolog FlexPen U-100 Insulin] 100 unit/mL (3 mL) Insulin Pen
12 unit SC AC Qty: 5 0RF
insulin glargine [Lantus Solostar U-100 Insulin] 100 unit/mL (3 mL) Insulin Pen
20 unit SC HS Qty: 5 0RF
Interventions
Interventions:
*Risk Screen - Suicide Last Done: 04/03/24 19:08
*General Assessment Last Done: 04/03/24 19:08
*Neglect/Abuse Screening Last Done: 04/03/24 19:08
*ED COVID-19 Vaccine History Last Done: 04/03/24 19:08
ED-Skin Assessment Last Done: 04/03/24 19:08
Discharge Date and Time
Print Language: [place]
== END 2024-04-03 19:38 | disposition home or self-care (01) ==
LOC: EMR 18:40
PROVIDERS: EMERGENCY PHYSICIAN Emergency Medicine
DX: I83.028 Varicose veins of left lower extremity with ulcer other part of lower leg (principal); L97.829 Non-pressure chronic ulcer of other part of left lower leg with unspecified severity; E11.9 Type 2 diabetes mellitus without complications
CPT/HCPCS: 99282; 82962